=== PATIENT | male | born 1965 | race Caucasian/White ===

== ENCOUNTER → 2016-05-31 | Outpatient (CLI) | payer SELFPAY ==
[2016-05-31 12:40] LABS: CHLORIDE,CL 110 mmol/L (98-110); SODIUM,NA 141 mmol/L (136-146)
== END ==
LOC: MW.CHIM 11:52
PROVIDERS: ATTEND Internal Medicine
DX: R00.2 Palpitations (principal)
CPT/HCPCS: 36415; 80053; 80061; 83036; 85025; 93005

== ENCOUNTER → 2016-06-14 | Outpatient (CLI) | payer BC ==
--- NOTE | 2016-06-20 15:58 | ECHO ---
The echocardiogram report can be seen in this patient's EMR in the Reports section. ROSSY
== END ==
LOC: MW.US 10:02
PROVIDERS: ATTEND Internal Medicine
DX: R00.2 Palpitations (principal)
CPT/HCPCS: 93306

== ENCOUNTER 2016-06-18 19:01 | Emergency (ER) | payer BC ==
[2016-06-18] MEDS ORDERED: Ketorolac 30 MG/ML SDV IVPUSH ONE (19:32)
[2016-06-18] MEDS ORDERED: Sodium Chloride 0.9% 2.5 ML Syringe FLUSH PRN (19:32)
[2016-06-18] MEDS ORDERED: Ondansetron 4 MG/2 ML SDV IVPUSH ONE (19:32)
[2016-06-18] MEDS ORDERED: Sodium Chloride 0.9% 10 ML Syringe FLUSH PRN (19:32)
[2016-06-18] MEDS ORDERED: Sodium Chloride 0.9% 1,000 ML IV ONE (19:32)
--- NOTE | 2016-06-18 19:35 | EDM.PDOC ---
ED HPI GENERAL MEDICAL PROBLEM - General Chief Complaint: Flank Pain Stated Complaint: LOWER BACK PAIN/KIDNEY RELATED Time Seen by Provider: 06/18/16 19:25 - History of Present Illness INITIAL COMMENTS - FREE TEXT/NARRATIVE: HISTORY AND PHYSICAL: History of present illness: The patient is a 50-year-old male with no history of GI or problems but who has a history of an appendectomy presents with complaints of right flank pain that radiates to the right lower abdomen into his testicle that started suddenly just prior to coming to the ER. According to the he has had this pain in the past but never to this level and usually they just treated symptomatically at home. This was very different than prior episodes. He has had no trauma to the area and has had no fever chills nausea vomiting or diarrhea. He has not had any hematuria dysuria or frequency. He currently denies any testicular pain or swelling and says that the pain was very intense and now that he is here it is much improved. He did not take any medications for the pain prior to arrival Patient states he drinks a lot of water and has never had any kidney stones in the past and has had no trauma to his back. There is no midline back pain. Review of systems: As per history of present illness and below otherwise all systems reviewed and negative. Past medical history: As per history of present illness and as reviewed below otherwise noncontributory. Surgical history: As per history of present illness and as reviewed below otherwise noncontributory. Social history: No reported history of drug or alcohol abuse. Family history: As per history of present illness and as reviewed below otherwise noncontributory. Physical exam: General: Well-developed overweight male who is nontoxic and speaking clearly and easily in ED. He does not look uncomfortable on my evaluation and vital signs have been noted by me HEENT: Atraumatic, normocephalic, negative for conjunctival pallor or scleral icterus, mucous membranes tacky, throat clear, neck supple, nontender, trachea midline. Lungs: Clear to auscultation, breath sounds equal bilaterally, chest nontender. Heart: S1S2, regular, negative for clicks, rubs, or JVD. Abdomen: Soft, nondistended, nontender. On palpation I cannot reproduce the pain and there are no masses rebound or guarding. Bowel sounds are hypoactive. Negative for masses or hepatosplenomegaly. Negative for costovertebral tenderness. Pelvis: Stable nontender. Genitourinary: Deferred. Rectal: Deferred. Extremities: Atraumatic, negative for cords or calf pain. Neurovascular unremarkable. Neuro: Awake, alert, oriented. Cranial nerves II through XII unremarkable. Cerebellum unremarkable. Motor and sensory unremarkable throughout. Exam nonfocal. Back: There are no midline step-offs or defects the thoracic or lumbar spine no specific CVA tenderness and no specific paralumbar spinal tenderness on palpation. Again I cannot reproduce the pain on palpation Diagnostics: UA urine culture CBC CMP CT scan of the abdomen and pelvis Therapeutics: IV IV fluids Toradol Zofran He Is feeling much improved and he and are aware of CAT scan results. He is also aware that he has incidental cholelithiasis. I will give him Cipro for home as well as Flomax [place] and Zofran and urine strainers. I've advised him to contact her urologist and reasons to return to the ER. Impression: Right flank pain, proximal right ureterolithiasis Definitive disposition and diagnosis as appropriate pending reevaluation and review of above. - Related Data Allergies Allergy/AdvReac Type Severity Reaction Status Date / Time No Known Allergies Allergy Verified 06/18/16 19:26 Home Meds: Home Meds . [No Known Home Meds] 06/18/16 [History] ED ROS GENERAL - Review of Systems Review Of Systems: ROS reveals no pertinent complaints other than HPI. ED EXAM, GENERAL - Physical Exam Exam: See Below (See dictation) Course - Vital Signs Last Recorded V/S: Last Vital Signs Temp 35.4 C 06/18/16 19:22 Pulse 62 06/18/16 19:22 Resp 20 06/18/16 19:22 BP 143/75 H 06/18/16 19:22 Pulse Ox 95 06/18/16 19:22 - Orders/Labs/Meds Orders: Active Orders 24 hr Category Date Time Status Communication Order [RC] STAT Care 06/18/16 21:12 Ordered Abdomen Pelvis wo Cont [CT] Stat Exams 06/18/16 19:32 Taken CULTURE URINE [RM] Stat Lab 06/18/16 19:23 Received Sodium Chloride 0.9% [Saline Flush] Med 06/18/16 19:32 Active 10 ml FLUSH ASDIRECTED PRN Sodium Chloride 0.9% [Saline Flush] Med 06/18/16 19:32 Active 2.5 ml FLUSH ASDIRECTED PRN Tamsulosin [Flomax] Med 06/18/16 21:12 Once 0.4 mg PO ONETIME ONE Saline Lock Insert [OM.PC] Stat Oth 06/18/16 19:31 Ordered Medication Orders Sodium Chloride (Saline Flush) 10 ml FLUSH ASDIRECTED PRN PRN Reason: Keep Vein Open Sodium Chloride (Saline Flush) 2.5 ml FLUSH ASDIRECTED PRN PRN Reason: Keep Vein Open Labs: Laboratory Tests 06/18/16 06/18/16 06/18/16 Range/Units 19:23 19:47 19:47 WBC 7.30 (4.0-11.0) K/uL RBC 5.09 (4.50-5.90) M/uL Hgb 15.4 (13.0-17.0) g/dL Hct 44.5 (38.0-50.0) % MCV 87.4 (80.0-98.0) fL MCH 30.3 (27.0-32.0) pg MCHC 34.6 (31.0-37.0) g/dL RDW Std Deviation 42.1 (28.0-62.0) fl RDW Coeff of Dawn 13 (11.0-15.0) % Plt Count 174 (150-400) K/uL MPV 9.80 (7.40-12.00) fL Neut % (Auto) 36.7 L (48.0-80.0) % Lymph % (Auto) 49.3 H (16.0-40.0) % [place] % (Auto) 11.0 (0.0-15.0) % Eos % (Auto) 2.7 (0.0-7.0) % Baso % (Auto) 0.3 (0.0-1.5) % Neut # (Auto) 2.7 (1.4-5.7) K/uL Lymph # (Auto) 3.6 H (0.6-2.4) K/uL Powell # (Auto) 0.8 (0.0-0.8) K/uL Eos # (Auto) 0.2 (0.0-0.7) K/uL Baso # (Auto) 0.0 (0.0-0.1) K/uL Nucleated RBC % 0.0 /100WBC Nucleated RBCs # 0 K/uL Sodium 141 (136-146) mmol/L Potassium 4.1 (3.5-5.1) mmol/L Chloride 109 (98-110) mmol/L Carbon Dioxide 21 (21-31) mmol/L BUN 16 (6.0-23.0) mg/dL Creatinine 1.3 (0.6-1.5) mg/dL Est Cr Clr Drug Dosing 73.79 mL/min Estimated GFR (MDRD) 58.2 ml/min Glucose 115 H (60-110) mg/dL Calcium 9.4 (8.8-10.8) mg/dL Total Bilirubin 0.4 (0.1-1.5) mg/dL AST 17 (5-40) IU/L ALT 27 (8-54) IU/L Alkaline Phosphatase 83 (40-150) Total Protein 6.9 (6.0-8.0) g/dL Albumin 4.3 (3.5-5.0) g/dL Globulin 2.6 (2.0-3.5) g/dL Albumin/Globulin Ratio 1.7 (1.3-2.8) Urine Color YELLOW Urine Appearance SLT CLOUDY Urine pH 7.0 (5.0-8.0) Ur Specific [place] 1.015 (1.001-1.035) Urine Protein TRACE (NEGATIVE) mg/dL Urine Glucose (UA) NEGATIVE (NEGATIVE) mg/dL Urine Ketones NEGATIVE (NEGATIVE) mg/dL Urine Occult Blood LARGE H (NEGATIVE) Urine Nitrite NEGATIVE (NEGATIVE) Urine Bilirubin NEGATIVE (NEGATIVE) Urine Urobilinogen 0.2 (<2.0) EU/dL Ur Leukocyte Esterase NEGATIVE (NEGATIVE) Urine RBC 75-100 (0-2/HPF) Urine WBC 1-2 (0-5/HPF) Ur Epithelial Cells RARE (NONE-FEW) Amorphous Sediment LIGHT (NEGATIVE) Urine Bacteria FEW (NEGATIVE) Urine Mucus LIGHT (NONE-MOD) Meds: Medications Generic Name Dose Route Start Last Admin Trade Name Freq PRN Reason Stop Dose Admin Sodium Chloride 10 ml 06/18/16 19:32 Saline Flush FLUSH ASDIRECTED PRN Keep Vein Open Sodium Chloride 2.5 ml 06/18/16 19:32 Saline Flush FLUSH ASDIRECTED PRN Keep Vein Open Discontinued Medications Generic Name Dose Route Start Last Admin Trade Name Koki PRN Reason Stop Dose Admin Hydromorphone HCl 1 mg 06/18/16 19:53 06/18/16 19:55 Dilaudid IVPUSH 06/18/16 19:54 1 mg ONETIME ONE Administration Hydromorphone HCl Confirm 06/18/16 19:54 Dilaudid Administered 06/18/16 19:55 Dose 2 mg .ROUTE .STK-MED ONE Sodium Chloride 1,000 mls @ 999 mls/hr 06/18/16 19:32 06/18/16 19:48 Normal Saline IV 06/18/16 20:32 999 mls/hr STAT ONE Administration Ketorolac Tromethamine 30 mg 06/18/16 19:32 06/18/16 19:48 Toradol IVPUSH 06/18/16 19:33 30 mg ONETIME ONE Administration Ondansetron HCl 4 mg 06/18/16 19:32 06/18/16 19:48 Zofran IVPUSH 06/18/16 19:33 4 mg ONETIME ONE Administration Departure - Departure Time of Disposition: 21:13 Disposition: Home, Self-Care 01 Condition: good Clinical Impression: Kidney stones, Ureterolithiasis - Discharge Information Forms: ED Department Discharge Additional Instructions: The following information is given to patients seen in the emergency department who are being discharged to home. This information is to outline your options for follow-up care. We provide all patients seen in our emergency department with a follow-up referral. The need for follow-up, as well as the timing and circumstances, are variable depending upon the specifics of your emergency department visit. If you don't have a primary care physician on staff, we will provide you with a referral. We always advise you to contact your personal physician following an emergency department visit to inform them of the circumstance of the visit and for follow-up with them and/or the need for any referrals to a consulting specialist. The emergency department will also refer you to a specialist when appropriate. This referral assures that you have the opportunity for followup care with a specialist. All of these measure are taken in an effort to provide you with optimal care, which includes your followup. Under all circumstances we always encourage you to contact your private physician who remains a resource for coordinating your care. When calling for followup care, please make the office aware that this follow-up is from your recent emergency room visit. If for any reason you are refused follow-up, please contact the [facility] emergency department at and ask to speak to the emergency department charge nurse. [facility] Primary care- Internal Medicine and Family [facility] [place] [id number] Specialty Care-Urology [address] [place] [id number] Please push hydration and strain all urine looking for the stone. He take medications as needed and as prescribed to take the Flomax every day and the Cipro as directed. Please call and followup with primary care and/or urologist and return to ER as needed and as discussed - My Orders Last 24 Hours: My Active Orders 06/18/16 19:23 CULTURE URINE [RM] Stat 06/18/16 19:31 Saline Lock Insert [OM.PC] Stat 06/18/16 19:32 Abdomen Pelvis wo Cont [CT] Stat Sodium Chloride 0.9% [Saline Flush] 10 ml FLUSH ASDIRECTED PRN Sodium Chloride 0.9% [Saline Flush] 2.5 ml FLUSH ASDIRECTED PRN 06/18/16 21:12 Communication Order [RC] STAT Tamsulosin [Flomax] 0.4 mg PO ONETIME ONE - Assessment/Plan Last 24 Hours: My Active Orders 06/18/16 19:23 CULTURE URINE [RM] Stat 06/18/16 19:31 Saline Lock Insert [OM.PC] Stat 06/18/16 19:32 Abdomen Pelvis wo Cont [CT] Stat Sodium Chloride 0.9% [Saline Flush] 10 ml FLUSH ASDIRECTED PRN Sodium Chloride 0.9% [Saline Flush] 2.5 ml FLUSH ASDIRECTED PRN 06/18/16 21:12 Communication Order [RC] STAT Tamsulosin [Flomax] 0.4 mg PO ONETIME ONE
[2016-06-18] MEDS ORDERED: HYDROmorphone 2 MG/ML Syringe IVPUSH ONE (19:53)
[2016-06-18] MEDS ORDERED: HYDROmorphone 2 MG/ML Syringe ONE (19:54)
[2016-06-18] MEDS ORDERED: Tamsulosin 0.4 MG Cap.ER PO ONE (21:12)
[2016-06-18 21:31] VITALS: BP 146/90
--- NOTE | 2016-06-19 15:53 | CT ---
EXAM DATE: 06/18/16 PATIENT'S AGE: 50 Patient: FERNANDO MACDONALD Facility: [facility] [place], [place] Site . Site : [id number] Study: CT Abdomen/Pelvis [id number] 8:12:02 PM Ordering Physician: Shirlene Townsend Final Report: INDICATION: right flank pain TECHNIQUE: CT abdomen and pelvis without contrast. COMPARISON: None FINDINGS: Lower chest: Unremarkable. Liver: Unremarkable. Spleen: Unremarkable. Pancreas: Unremarkable. Gallbladder and bile ducts: Cholelithiasis. Kidneys: 5 mm calculus within the proximal right ureter with associated right- sided hydroureter/hydronephrosis. Additional nonobstructing intrarenal calculus within the inferior pole of the left kidney. Adrenal glands: Unremarkable. GI tract: Unremarkable. Appendix is not visualized. Vascular structures: Atherosclerotic disease. Lymph nodes: Unremarkable. Miscellaneous: Left periumbilical fat containing hernia. There appears to be stranding along the urinary bladder. No free air or significant free fluid. Pelvic Organs: Enlarged prostate, prostatic calcifications. Bones: Unremarkable for age. IMPRESSION: 1. 5 mm calculus within the proximal right ureter with associated right-sided hydroureter/hydronephrosis. Additional nonobstructing intrarenal calculus within the inferior pole of the left kidney. 2. Please correlate for acute cystitis. 3. Enlarged prostate. Please correlate with PSA levels. 4. Cholelithiasis. Dictated by Mike Mcdermott MD @ 06/18/2016 8:30:02 PM Dictated by: Mike Mcdermott MD @ 06/18/2016 20:30:09 (Electronic Signature) Report Signed by Proxy. [facility] SYSTEMMercedez
== END 2016-06-18 21:33 | disposition home or self-care (01) ==
LOC: MW.ED 19:01
DX: N13.2 Hydronephrosis with renal and ureteral calculous obstruction (principal); Z90.49 Acquired absence of other specified parts of digestive tract
CPT/HCPCS: 36415; 74176; 80053; 81001; 85025; 87086; 96361; 96374; 96375; 99284; A9270; J1170; J1885; J2405; J7040

== ENCOUNTER → 2016-07-01 | Outpatient (CLI) | payer BC ==
--- NOTE | 2016-07-01 16:33 | CR ---
EXAMINATION: Abdomen HISTORY: Calculus of ureter COMPARISON: CT dated 06/18/2016 TECHNIQUE: AP views FINDINGS: Cholelithiasis are noted. There is a small calcification projecting over the upper right u reter, within the region of the previously demonstrated stone. Otherwise no abnormal calcifications project over the kidneys. There is a nonobstructive bowel gas pattern. No organomegaly. The visualiz ed osseous structures appear normal. IMPRESSION: 1. Probable unchanged position of the previously demonstrated right ureteral stone.
== END ==
LOC: MW.CHUR 12:11
PROVIDERS: ATTEND Urology
DX: N20.1 Calculus of ureter (principal); R35.1 Nocturia
CPT/HCPCS: 36415; 74000; 74000-26; 84153